=== PATIENT | female | born 1955 | race Caucasian/White ===

== ENCOUNTER → 2017-08-30 | Outpatient (CLI) | payer OTHER | LOC: M WHC 14:59 | DX: Z12.31 Encounter for screening mammogram for malignant neoplasm of breast (principal) | CPT/HCPCS: 77067 ==

== ENCOUNTER 2017-10-19 12:30 | Day surgery (SDC) | payer OTHER ==
[~2017-10-19 12:30] MED LIST: LIDOCAINE W/EPINEPHRINE 1% 20ML VIAL As Ordered
[2017-10-19] MEDS ORDERED: NS 1,000 ML IV (12:45)
[2017-10-19] MEDS ORDERED: LIDOCAINE 2% INJ 100 MG/5 ML SDV (FOR ANES.) As Ordered (14:48)
[2017-10-19] MEDS ORDERED: PROPOFOL 200 MG/20 ML VIAL As Ordered ×2 (14:48→15:47)
[2017-10-19] MEDS ORDERED: LABETALOL HCL 100 MG/20 ML VIAL As Ordered (14:51)
== END 2017-10-19 16:28 | disposition home or self-care (01) ==
LOC: M OPP 12:30
DX: Z12.11 Encounter for screening for malignant neoplasm of colon (principal); K64.0 First degree hemorrhoids; G43.909 Migraine, unspecified, not intractable, without status migrainosus; R06.83 Snoring; F41.9 Anxiety disorder, unspecified; Z79.899 Other long term (current) drug therapy; Z80.3 Family history of malignant neoplasm of breast; Z87.891 Personal history of nicotine dependence
CPT/HCPCS: G0121

== ENCOUNTER → 2017-10-26 | Outpatient (REF) | payer OTHER ==
[2017-10-26 19:25] LABS: TOTAL 25(OH) VITAMIN D 37.5 NG/ML (30.0-100.0)
[2017-10-26 19:26] LABS: TESTOSTERONE 369 NG/DL (14-76)
[2017-10-26 19:26] LABS: ESTRADIOL 59.5 PG/ML; FOLLICLE STIMULATING HORMONE 43.6 mIU/mL
== END ==
LOC: M LABDRAWC 16:49
DX: N95.1 Menopausal and female climacteric states (principal); E55.9 Vitamin D deficiency, unspecified

== ENCOUNTER → 2018-09-07 | Outpatient (REF) | payer OTHER ==
[~2018-09-07] MED LIST changes: +CITA20TA6 PO; +IMIT100T PO; -LIDOCAINE W/EPINEPHRINE 1% 20ML VIAL As Ordered; +PROG200C PO; +SLEE25TA PO
[2018-09-07 16:42] LABS: BASO % 0.7 % (0.0-1.0); EOS # 0.3 10^3/uL (0.0-0.50); HEMATOCRIT 39.8 % (36.0-47.0); HEMOGLOBIN 13.1 g/dl (12.0-15.5); LYMPH # 1.3 10^3/uL (1.5-4.5); LYMPH % 23.3 % (24.0-44.0); MEAN CORPUSCULAR HEMOGLOBIN 31.2 pg (27.0-33.0); MEAN CORPUSCULAR HGB CONC 32.9 g/dl (32.0-36.5); MEAN CORPUSCULAR VOLUME 94.8 fl (80.0-96.0); MONO # 0.5 10^3/uL (0.0-0.8); MONO % 9.7 % (0.0-5.0); NEUTROPHILS # 3.3 10^3/uL (1.8-7.7); NEUTROPHILS % 61.1 % (36.0-66.0); PLATELET COUNT, AUTOMATED 256 10^3/uL (150-450); WHITE BLOOD COUNT 5.4 10^3/uL (4.0-10.0)
[2018-09-07 16:51] LABS: ALBUMIN 4.1 GM/DL (3.2-5.2); ALT/SGPT 23 U/L (12-78); BILIRUBIN,TOTAL 0.4 MG/DL (0.2-1.0); BLOOD UREA NITROGEN 13 MG/DL (7-18); CALCIUM LEVEL 8.7 MG/DL (8.8-10.2); CARBON DIOXIDE LEVEL 30 MEQ/L (21-32); CHLORIDE LEVEL 103 MEQ/L (98-107); CHOLESTEROL LEVEL 220 MG/DL (<200); CHOLESTEROL RISK RATIO 2.933 (<5); CREATININE FOR GFR 0.75 MG/DL (0.55-1.30); GLOMERULAR FILTRATION RATE > 60.0 (>45); GLUCOSE, FASTING 96 MG/DL (70-100); HDL CHOLESTEROL 75 MG/DL (>40); LDL CHOLESTEROL 129 MG/DL (<100); NON-HDL-C 145 MG/DL; POTASSIUM SERUM 4.2 MEQ/L (3.5-5.1); SODIUM LEVEL 139 MEQ/L (136-145); TOTAL PROTEIN 7.4 GM/DL (6.4-8.2); TRIGLYCERIDES LEVEL 81 MG/DL (<150)
[2018-09-07 16:58] LABS: ESTRADIOL 61.3 PG/ML; TESTOSTERONE 260 NG/DL (14-76)
[2018-09-07 16:59] LABS: FREE T4 0.64 NG/DL (0.76-1.46); THYROID STIMULATING HORMONE 1.43 uIU/ML (0.358-3.740)
[2018-09-08 09:54] LABS: THYROID PEROXIDASE ANTIBODY 131.4 U/ML (<60.0)
== END ==
LOC: M SFHCCLAY 10:03
PROVIDERS: ATTEND Nurse Practitioner Family
DX: F32.9 Major depressive disorder, single episode, unspecified (principal); N95.1 Menopausal and female climacteric states; R63.5 Abnormal weight gain; R53.83 Other fatigue

== ENCOUNTER → 2018-09-20 | Outpatient (CLI) | payer OTHER ==
[~2018-09-20] MED LIST changes: +PROG1CAP9 PO; -PROG200C PO
--- NOTE | 2018-09-20 19:38 | REP ---
BILATERAL MAMMOGRAM WITH LEFT BREAST ULTRASOUND: Clinical history: Pain left upper outer quadrant for two months. MLO and CC views of both breasts performed in addition to axillary CC and ML view of the left breast. There is no family history of breast cancer. [facility] of [facility] 16.[facility]%. Moderate diffuse fibroglandular tissue is seen in a heterogenous pattern. I do not see a discrete mass. No architectural distortion is seen. No suspicious clusters of microcalcifications are seen. Real-time sonographic evaluation of the left breast performed in the upper outer quadrant. No cystic or solid nodule is seen. IMPRESSION: ACR 2 benign. Moderate diffuse heterogeneous fibroglandular tissue present without a discrete mass or architectural distortion. No sonographic abnormality in the upper outer quadrant of the left breast in the region of pain. Clinical correlation and followup recommended. Recommend followup mammogram in one year. BIRADS 2: BI-RADS/ACR category 2 mammogram. Benign Findings. This mammogram was interpreted with the aid of an FDA-approved computer-aided detection system. The patient states she/he had a clinical breast exam August 2018. The patient letter being requested is M2. Electronically Signed by Giacomo Rowe MD 09/22/2018 12:47 P
== END ==
LOC: M RAD 13:14
PROVIDERS: ATTEND Nurse Practitioner Family
DX: N64.4 Mastodynia (principal)
CPT/HCPCS: 76642; 77066; G0279